=== PATIENT | male | born 1995 | race Caucasian/White ===

== ENCOUNTER 2018-01-31 11:39 | Emergency (ER) | payer OTHER ==
[~2018-01-31] VITALS: Ht 167.6 cm; Wt 80.0 kg
[~2018-01-31 11:39] MED LIST: AMOXICILLIN500 MG PO; ULTRAM50 M1 PO
[2018-01-31] MEDS ORDERED: DOXYCYCL HYC100 MG PO (12:09)
[2018-01-31] MEDS ORDERED: FLOXIN OTIC0.3 % OT (12:11)
[2018-01-31 12:15] VITALS: BP 120/84
== END 2018-01-31 12:15 | disposition home or self-care (01) | DRG 156 ==
LOC: ED 11:39
DX: H60.92 Unspecified otitis externa, left ear (principal); H66.92 Otitis media, unspecified, left ear; F17.210 Nicotine dependence, cigarettes, uncomplicated

== ENCOUNTER 2018-04-17 18:51 | Emergency (ER) | payer OTHER ==
[~2018-04-17] VITALS: Ht 167.6 cm; Wt 83.0 kg
[~2018-04-17 18:51] MED LIST changes: +DOXYCYCL HYC100 MG PO; +FLOXIN OTIC0.3 % OT
[2018-04-17 19:19] VITALS: BP 120/71
== END 2018-04-17 19:28 | disposition home or self-care (01) | DRG 607 ==
LOC: ED 18:51
DX: R22.31 Localized swelling, mass and lump, right upper limb (principal); M79.641 Pain in right hand

== ENCOUNTER 2019-04-12 08:54 | Emergency (ER) | payer OTHER ==
[~2019-04-12] VITALS: Ht 167.6 cm; Wt 86.4 kg
[2019-04-12] MEDS ORDERED: CYCLOBENZAPR5 MG PO (09:33)
[2019-04-12 10:12] VITALS: BP 121/78
== END 2019-04-12 10:22 | disposition home or self-care (01) | DRG 552 ==
LOC: ED 08:54
DX: M54.5 Low back pain (principal); F17.210 Nicotine dependence, cigarettes, uncomplicated

== ENCOUNTER 2019-05-20 17:21 | Emergency (ER) | payer SELFPAY ==
[~2019-05-20] VITALS: Ht 167.6 cm; Wt 85.0 kg
[~2019-05-20 17:21] MED LIST changes: +CYCLOBENZAPR5 MG PO
[2019-05-20] MEDS ORDERED: CYCLOBENZAPR5 MG PO (17:43)
[2019-05-20 17:58] VITALS: BP 122/78
== END 2019-05-20 17:59 | disposition home or self-care (01) | DRG 552 ==
LOC: ED 17:21
DX: M62.830 Muscle spasm of back (principal); F17.200 Nicotine dependence, unspecified, uncomplicated

== ENCOUNTER 2020-01-07 | Emergency (ER) | payer SELFPAY ==
[2020-01-07] MEDS ORDERED: DOXYCYCL HYC100 MG PO (20:56)
== END 2020-01-07 21:05 | disposition home or self-care (01) | DRG 203 ==
DX: J40 Bronchitis, not specified as acute or chronic (principal); F17.210 Nicotine dependence, cigarettes, uncomplicated

== ENCOUNTER 2020-01-30 | Emergency (ER) | payer SELFPAY ==
[2020-01-30 22:49] LABS: HEMATOCRIT 39.5 % (39.0-50.0); HEMOGLOBIN 13.6 g/dl (14.0-18.0); IMMATURE GRANULOCYTES 0.1 % (0.0-5.0); MEAN CELL VOLUME 90.4 fL CALC (80.0-100.0); MEAN CORPUSCULAR HGB 31.1 pG CALC (26.0-32.0); MEAN CORPUSCULAR HGB CONC 34.4 g/dL CAL (32.0-36.0); RED BLOOD COUNT 4.37 mill/uL (4.70-6.10); RED CELL DISTRI WIDTH 12.1 % (11.5-15.5)
== END 2020-01-31 00:10 | disposition home or self-care (01) | DRG 204 ==
PROVIDERS: Family Medicine
DX: R05 Cough (principal); F17.200 Nicotine dependence, unspecified, uncomplicated